=== PATIENT | female | born 1950 | race Caucasian/White ===

== ENCOUNTER 2021-09-30 13:45 | Inpatient (IN) | payer MEDICARE ==
[~2021-09-30] VITALS: Ht 165.1 cm; Wt 84.8 kg
--- NOTE | 2021-09-30 13:58 | NUR ---
Pt placed on monitor, started IV 20g left AC, Blood drawn and given to laboratory scientist.
[2021-09-30] MEDS ORDERED: PROMETHAZINE HCL INJ 12.5 MG in IV DEXTROSE 5% 50 ML IM ONE (14:00)
[2021-09-30] MEDS ORDERED: NORTRIPTYLINE (14:02)
[2021-09-30] MEDS ORDERED: VENLAFAXINE (14:02)
[2021-09-30] MEDS ORDERED: FURO20TA90 (14:02)
[2021-09-30] MEDS ORDERED: XARELTO (14:02)
--- NOTE | 2021-09-30 14:02 | NUR ---
PT IS IN ROOM #3. DR GRAVES EVALUATED THE PT. PT DOES NOT REMEMBER ALL NAMES AND DOSAGES OF HER HOME MEDICATION.
[2021-09-30 14:09] LABS: HEMATOCRIT 40.6 % (31.2-41.9); MEAN CORPUSCULAR HEMOGLOBIN 31.2 uug (24.7-32.8); MEAN CORPUSCULAR VOLUME 93.8 fL (75.5-95.3); PLATELET COUNT (AUTO) 261 K/uL (179-408)
[2021-09-30] MEDS ORDERED: MECLIZINE HCL 25 MG TABLET ONE ×2 (14:13→14:17)
[2021-09-30] MEDS ORDERED: MECLIZINE HCL 25 MG TABLET PO ONE ×2 (14:15→15:00)
[2021-09-30 14:19] LABS: BILIRUBIN,DIRECT 0.1 mg/dL (0.0-0.2); BILIRUBIN,TOTAL 0.4 mg/dL (0.2-1.0); CREATININE 0.9 mg/dL (0.6-1.3); POTASSIUM 4.6 mmol/L (3.5-5.1); TOTAL PROTEIN, SERUM 6.7 g/dL (6.4-8.2)
--- NOTE | 2021-09-30 14:30 | NUR ---
Per MD verbal order, meclizine 12.5mg PO given.
[2021-09-30] MEDS ORDERED: PROCHLORPERAZINE EDISYLATE 10 MG/2 ML VIAL ONE (15:21)
[2021-09-30] MEDS ORDERED: PROCHLORPERAZINE EDISYLATE 10 MG/2 ML VIAL IV ONE (15:30)
--- NOTE | 2021-09-30 18:01 | NUR ---
called for bed, medsurg room 302
--- NOTE | 2021-09-30 18:15 | NUR ---
Spoke with kelly, said she will have the nurse call me back to take the report.
--- NOTE | 2021-09-30 20:15 | NUR ---
Report given to Anel CALVIN
--- NOTE | 2021-09-30 20:50 | NUR ---
Admitted a 71 years old female with Diagnosis of Vertigo. Patient AAOx4. 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 In no acute distress. Denies any pain or SOB. Denies any dizziness at this time. NSR on tele with BBB and PVC, HR at 70/min. Left AC IV site intact and patent. Routine admission care done. Plan of care initiated. Safety measure initiated and call light within reached.
[2021-09-30] MEDS ORDERED: AMLODIPINE 5 MG TABLET PO ONE (21:00)
--- NOTE | 2021-09-30 21:00 | NUR ---
pt taken to room 302 via [facility] [facility] with all belongings.
[2021-09-30] MEDS: RIVAROXABAN 10 MG TABLET PO SCH (21:15)
[2021-09-30] MEDS: ACETAMINOPHEN 325 MG TABLET PO PRN (21:31)
[2021-09-30 22:03] VITALS: BP 119/65
[2021-10-01 00:39] VITALS: BP 117/50
[2021-10-01] MEDS: ACETAMINOPHEN 325 MG TABLET PO PRN ×3 (04:26→21:56)
[2021-10-01 04:45] VITALS: BP 118/68
[2021-10-01] MEDS: PANTOPRAZOLE SODIUM 40 MG TABLET.DR PO SCH (06:09)
--- NOTE | 2021-10-01 06:13 | NUR ---
Patient remains AAOx4. In no acute distress. Stated still having mild Vertigo, but tolerable. Complain of headache and given Tylenol 650mg PO and effective. NSR with BBB and rare PVC's on tele with HR of 68/min. IV site on left AC remains intact and patent. Needs attended to and met. Safety measure maintained and call light within reached.
[2021-10-01 06:39] LABS: HEMATOCRIT 37.5 % (31.2-41.9); MEAN CORPUSCULAR HEMOGLOBIN 32.2 uug (24.7-32.8); MEAN CORPUSCULAR VOLUME 93.9 fL (75.5-95.3); PLATELET COUNT (AUTO) 237 K/uL (179-408)
[2021-10-01 06:51] LABS: POTASSIUM 4.7 mmol/L (3.5-5.1)
[2021-10-01 07:03] LABS: THYROID STIMULATING HORMONE 2.211 mIU/mL (0.358-3.740)
[2021-10-01 07:21] LABS: BILIRUBIN,TOTAL 0.4 mg/dL (0.2-1.0); MAGNESIUM 2.1 mg/dL (1.8-2.4); PHOSPHOROUS 4.3 mg/dL (2.5-4.9); TOTAL PROTEIN, SERUM 6.3 g/dL (6.4-8.2)
[2021-10-01] MEDS: MECLIZINE HCL 25 MG TABLET PO PRN (10:21)
--- NOTE | 2021-10-01 10:21 | NUR ---
Pt alert and oriented x 4. Pt c/o Martinez gave tylenol. Pt c/o dizziness Meclizine given.
--- NOTE | 2021-10-01 11:00 | NUR ---
Attempted to reconcile med list. Called her [facility] was closed. Will attempt again tomorrow.
--- NOTE | 2021-10-01 11:30 | NUR ---
Pt states that Tylenol was not effective notified dr damon. Awaiting new orders.
[2021-10-01 11:49] VITALS: BP 137/55
[2021-10-01] MEDS ORDERED: SUMATRIPTAN SUCCINATE 50 MG TABLET PO ONE (12:00)
--- NOTE | 2021-10-01 16:19 | NUR ---
Pt denies any c/o pain. Pt relieved of migraine KAUFFMAN with the imitrex effective.
[2021-10-01 16:34] VITALS: BP 134/60
[2021-10-01] MEDS: RIVAROXABAN 10 MG TABLET PO SCH (17:30)
[2021-10-01] MEDS: SUMATRIPTAN SUCCINATE 50 MG TABLET PO PRN (20:03)
[2021-10-01 20:18] VITALS: BP 139/68
[2021-10-01] MEDS: LIDOCAINE 5% PATCH TD SCH (21:52)
[2021-10-02] MEDS: SUMATRIPTAN SUCCINATE 50 MG TABLET PO PRN ×3 (03:40→20:34)
[2021-10-02 04:25] VITALS: BP 121/67
[2021-10-02 06:05] LABS: HEMATOCRIT 40.3 % (31.2-41.9); MEAN CORPUSCULAR HEMOGLOBIN 31.9 uug (24.7-32.8); PLATELET COUNT (AUTO) 238 K/uL (179-408)
[2021-10-02 06:22] LABS: CREATININE 1.1 mg/dL (0.6-1.3); PHOSPHOROUS 4.6 mg/dL (2.5-4.9); POTASSIUM 4.7 mmol/L (3.5-5.1)
[2021-10-02] MEDS: PANTOPRAZOLE SODIUM 40 MG TABLET.DR PO SCH (06:24)
--- NOTE | 2021-10-02 08:00 | NUR ---
patient in bed, still complaining of headache and dizziness upon moving and looking around room. Patient denies any nausea at this time. Seen by Dr. Landry, with request for PT to try Susana maneuver to relieve vertigo. PT department made aware.
[2021-10-02] MEDS: MECLIZINE HCL 25 MG TABLET PO PRN ×2 (08:30→23:59)
[2021-10-02] MEDS: ACETAMINOPHEN 325 MG TABLET PO PRN ×2 (08:30→17:16)
--- NOTE | 2021-10-02 10:50 | NUR ---
MRI APPROVED BY DR. GAMEZ, PATIENT IS SCHEDULED FOR MRI TOMORROW @8.30,MUST BE NPO AFTER MIDNITE FOR MRCP.
--- NOTE | 2021-10-02 11:00 | NUR ---
Per PT, patient is not able to tolerated sitting up at bedside. She is severely dizzy. Dr. Vasquez with orders for MRI of spine and brain, and MRCP. Made Dr. Landry of new orders and PT report, Susana maneuver to be attempted tomorrow. made aware of new orders.
[2021-10-02 11:40] VITALS: BP 151/74
[2021-10-02] MEDS ORDERED: RIVA20TA PO (12:18)
[2021-10-02] MEDS ORDERED: FURO20TA4 PO (12:18)
[2021-10-02] MEDS ORDERED: VENL37.510 PO (12:18)
[2021-10-02] MEDS ORDERED: ATOR20TA PO (12:18)
[2021-10-02] MEDS ORDERED: POTA10CA43 PO (12:18)
[2021-10-02] MEDS ORDERED: NORT25CA PO (12:18)
[2021-10-02] MEDS ORDERED: FAMO40TA7 PO (12:18)
[2021-10-02] MEDS ORDERED: PROP20TA7 PO (12:18)
[2021-10-02] MEDS ORDERED: PANT40TA49 PO (12:18)
[2021-10-02] MEDS ORDERED: ONDA-104 PO (12:18)
[2021-10-02] MEDS: ONDANSETRON 4 MG/2 ML VIAL IV PRN ×2 (14:28→20:34)
[2021-10-02 16:24] VITALS: BP 154/60
--- NOTE | 2021-10-02 16:25 | NUR ---
Medication list received from [facility] directly to [facility], Dr. Vasquez requested to reconcile medications.
[2021-10-02] MEDS: RIVAROXABAN 10 MG TABLET PO SCH (17:20)
[2021-10-02] MEDS: PROCHLORPERAZINE EDISYLATE 10 MG/2 ML VIAL IV PRN (18:38)
--- NOTE | 2021-10-02 18:45 | NUR ---
Patient had one episode of dry heaving, severe nausea, no emesis. Patient diaphoretic. Compazine IV provided as ordered with some help. No change in LOC, pupils, equal and reactive. Will endorse to night shift supervisor.
[2021-10-02 20:00] VITALS: BP 142/67
[2021-10-02] MEDS: NORTRIPTYLINE HCL 25 MG CAPSULE PO SCH (20:34)
[2021-10-02] MEDS: ATORVASTATIN 20 MG TABLET PO SCH (20:35)
[2021-10-02] MEDS: PROPRANOLOL HCL 10 MG TABLET PO SCH (20:35)
[2021-10-02] MEDS: LIDOCAINE 5% PATCH TD SCH (20:45)
[2021-10-02] MEDS ORDERED: ATORVASTATIN 10 MG TABLET PO SCH (21:00)
[2021-10-03 04:21] VITALS: BP 110/68
[2021-10-03] MEDS: PANTOPRAZOLE SODIUM 40 MG TABLET.DR PO SCH (06:09)
[2021-10-03] MEDS: SUMATRIPTAN SUCCINATE 50 MG TABLET PO PRN ×2 (06:09→12:14)
[2021-10-03] MEDS: ONDANSETRON 4 MG/2 ML VIAL IV PRN ×2 (06:09→12:14)
[2021-10-03] MEDS: PROCHLORPERAZINE EDISYLATE 10 MG/2 ML VIAL IV PRN ×2 (07:45→17:19)
[2021-10-03] MEDS: ACETAMINOPHEN 325 MG TABLET PO PRN (07:45)
--- NOTE | 2021-10-03 07:45 | NUR ---
Patient is AAOx4. Still c/o nausea and moderate headache. Tylenol and Compazine provided. [facility] in unit to transport patient to [facility] for MRI of spine and brain as well as MRCP.
[2021-10-03] MEDS ORDERED: FUROSEMIDE 20 MG TABLET PO SCH (09:00)
--- NOTE | 2021-10-03 09:33 | NUR ---
ONLY MRI L SPINE WAS DONE, PATIENT UNABLE TO TOLERATE PAIN, REFUSE MRCP/MRI BRAIN EXAM, FLOOR NURSE WAS NOTIFIED BY CHIEF STEWARD/STEWARDESSSANDRA DON.
[2021-10-03] MEDS ORDERED: HYDROMORPHONE 2 MG/1 ML DISP.SYRIN IV PRN (09:45)
--- NOTE | 2021-10-03 09:45 | NUR ---
Patient return from MRI/ MRCP, per report patient is in severe back pain and headache as well as nauseous therefore only MRI of spine is able to be done. Patient on unit and still c/o same symptoms but slightly better then when she is in procedure. Jolene Ontiveros NP made aware with new orders for Dilaudid IV PRN. Patient HOB up, aspiration precautions continued.
[2021-10-03] MEDS: PROPRANOLOL HCL 10 MG TABLET PO SCH ×2 (09:51→22:08)
[2021-10-03 11:53] VITALS: BP 139/74
--- NOTE | 2021-10-03 13:00 | NUR ---
Patient with some relief of back pain, still c/o headache 11/03. Imitrex and zofran provided, with some help. Patient refusing lunch d/t nausea, lemon soda provided with help.
--- NOTE | 2021-10-03 14:30 | NUR ---
PT in unit to work with patient and attempt Susana maneuver. Patient unable to tolerate sitting up, began to throw up. Jolene Lemus NP made aware of episode and inability to tolerate activity, No new orders.
[2021-10-03 16:23] VITALS: BP 118/55
[2021-10-03] MEDS: RIVAROXABAN 10 MG TABLET PO SCH (18:00)
--- NOTE | 2021-10-03 18:10 | NUR ---
Jolene Lemus np made aware of patient continued nausea, dizziness and headache. patient has 2 episodes of emesis, water, no solids, unable to tolerate PO food or fluids at this time. Jolene Lemus NP with orders for IV fluids and Reglan IV.
--- NOTE | 2021-10-03 18:17 | NUR ---
Jolene Lemus NP with orders to DC zofran and compazine and start on routine Reglan. Also, CT of abd/ pelvis without contrast.
--- NOTE | 2021-10-03 18:30 | NUR ---
Patient picked up for CT of abd and pelvis without contrast.
[2021-10-03] MEDS: IV NS 1000 ML 1,000 ML IV PRN (19:02)
[2021-10-03 20:43] VITALS: BP 154/70
[2021-10-03] MEDS: METOCLOPRAMIDE HCL 10 MG/2 ML VIAL IV SCH (21:11)
[2021-10-03] MEDS: LIDOCAINE 5% PATCH TD SCH (22:03)
[2021-10-03] MEDS: ATORVASTATIN 20 MG TABLET PO SCH (22:08)
[2021-10-03] MEDS: NORTRIPTYLINE HCL 25 MG CAPSULE PO SCH (22:09)
[2021-10-04] MEDS: METOCLOPRAMIDE HCL 10 MG/2 ML VIAL IV SCH ×4 (00:57→18:07)
[2021-10-04] MEDS: SUMATRIPTAN SUCCINATE 50 MG TABLET PO PRN ×2 (01:51→21:36)
[2021-10-04 04:00] VITALS: BP 146/77
[2021-10-04] MEDS: PANTOPRAZOLE SODIUM 40 MG TABLET.DR PO SCH (06:38)
[2021-10-04 06:50] LABS: HEMATOCRIT 40.6 % (31.2-41.9); MEAN CORPUSCULAR VOLUME 93.2 fL (75.5-95.3); PLATELET COUNT (AUTO) 228 K/uL (179-408)
--- NOTE | 2021-10-04 06:55 | NUR ---
PATIENT ALERT ORIENTED, NO SOB NO CHEST PAIN, STILL COMPLAIN OF LIGHT DIZZINESS, AND HEADACHES, NO VOMITING NOTED, CONT ON REGLAN. CONT TO MONITOR.
[2021-10-04 07:28] LABS: BILIRUBIN,TOTAL 0.6 mg/dL (0.2-1.0); CREATININE 0.9 mg/dL (0.6-1.3); POTASSIUM 4.3 mmol/L (3.5-5.1); TOTAL PROTEIN, SERUM 6.7 g/dL (6.4-8.2)
[2021-10-04] MEDS: PROPRANOLOL HCL 10 MG TABLET PO SCH ×2 (08:42→20:38)
[2021-10-04] MEDS: IV NS 1000 ML 1,000 ML IV PRN (10:01)
[2021-10-04 11:30] VITALS: BP 122/53
--- NOTE | 2021-10-04 14:33 | NUR ---
Patient had hot flashes after stood up with PT. Pt is in bed now with a moist towel on her forhead (she requested) and I will keep monitoring her.
--- NOTE | 2021-10-04 14:44 | NUR ---
Patient is feeling better, her BP currently is 152/72 pulse 79. Says has a little bit of headache and asked for Tylenol
[2021-10-04] MEDS: ACETAMINOPHEN 325 MG TABLET PO PRN (15:29)
[2021-10-04 16:00] VITALS: BP 129/58
[2021-10-04] MEDS ORDERED: IOHEXOL 350 100 ML INFUS..BTL ONE (16:35)
[2021-10-04] MEDS ORDERED: SWABABLE VALVE TRANSFER SET EA MC ONE (16:35)
[2021-10-04] MEDS ORDERED: IV NORMAL SALINE 250 ML IV ONE (16:36)
[2021-10-04] MEDS: MECLIZINE HCL 25 MG TABLET PO PRN (16:39)
[2021-10-04] MEDS ORDERED: METOCLOPRAMIDE HCL 10 MG/2 ML VIAL IV SCH (18:00)
[2021-10-04] MEDS: RIVAROXABAN 10 MG TABLET PO SCH (18:06)
[2021-10-04] MEDS: ATORVASTATIN 20 MG TABLET PO SCH (20:38)
[2021-10-04] MEDS: NORTRIPTYLINE HCL 25 MG CAPSULE PO SCH (20:38)
[2021-10-04 20:39] VITALS: BP 135/75
[2021-10-04] MEDS: LIDOCAINE 5% PATCH TD SCH (20:39)
--- NOTE | 2021-10-04 22:00 | NUR ---
PATIENT ALERT ORIENTED, NO SOB NO CHEST PAIN, COMPLAIN OF HEADACHES, REQUESTED MIGRAINE PAIN MEDS, NO DIZZINESS, NO VOMITING NOTED, USES BEDPAN FOR BLADDER ELIMINATIONS, CONT TO MONITOR.
[2021-10-05] MEDS: IV NS 1000 ML 1,000 ML IV PRN
[2021-10-05] MEDS: METOCLOPRAMIDE HCL 10 MG/2 ML VIAL IV SCH ×3 (01:22→12:00)
[2021-10-05 04:00] VITALS: BP 147/69
[2021-10-05] MEDS: PANTOPRAZOLE SODIUM 40 MG TABLET.DR PO SCH (05:47)
[2021-10-05] MEDS: PROPRANOLOL HCL 10 MG TABLET PO SCH (08:00)
[2021-10-05 11:22] VITALS: BP 142/58
[2021-10-05] MEDS ORDERED: MECL-159 PO (12:33)
[2021-10-05] MEDS ORDERED: PROP10TA68 PO (12:33)
[2021-10-05] MEDS ORDERED: SUMA50TA PO (12:33)
[2021-10-05] MEDS ORDERED: METO-295 PO (12:33)
[2021-10-05] MEDS: MECLIZINE HCL 25 MG TABLET PO PRN (13:33)
[2021-10-05] MEDS ORDERED: ENSURE ENLIVE (VAN) 240 ML LIQUID PO SCH (17:00)
--- NOTE | 2021-10-05 17:34 | NUR ---
dc orders received noted and carried out.dc heplock per md orders.dc instruction and education given to the pt.pt said she will follow up with her pcp.pt left the facility via private car in stable condition
== END 2021-10-05 17:39 | disposition home or self-care (01) | DRG 149 ==
LOC: ER 13:46 → MEDSURG3 20:22 → TELE3 20:52 → MEDSURG3 10-01 13:30
PROVIDERS: ADMIT Internal Medicine; ATTEND Nurse Practitioner Acute Care
DX: H81.10 Benign paroxysmal vertigo, unspecified ear (principal); D68.59 Other primary thrombophilia; M48.56XA Collapsed vertebra, not elsewhere classified, lumbar region, initial encounter for fracture; G43.909 Migraine, unspecified, not intractable, without status migrainosus; Z74.09 Other reduced mobility; E66.9 Obesity, unspecified; E78.5 Hyperlipidemia, unspecified; Z20.822 Contact with and (suspected) exposure to COVID-19; Z86.711 Personal history of pulmonary embolism; Z86.73 Personal history of transient ischemic attack (TIA), and cerebral infarction without residual deficits; Z86.718 Personal history of other venous thrombosis and embolism; Z79.01 Long term (current) use of anticoagulants; Z87.442 Personal history of urinary calculi; Z87.891 Personal history of nicotine dependence; Z88.0 Allergy status to penicillin; Z88.2 Allergy status to sulfonamides; H54.61 Unqualified visual loss, right eye, normal vision left eye; K76.9 Liver disease, unspecified; I44.7 Left bundle-branch block, unspecified; R73.9 Hyperglycemia, unspecified; I10 Essential (primary) hypertension; Z68.31 Body mass index [BMI] 31.0-31.9, adult; Z90.710 Acquired absence of both cervix and uterus; Z98.890 Other specified postprocedural states; M51.16 Intervertebral disc disorders with radiculopathy, lumbar region
CPT/HCPCS: 36415; 70450; 70496; 71045; 72148; 83735; 84100; 84443; 84484; 85025; 93005; 93307; 93880; 97161; A4663; G0378; J0780; J1170; J2405; J2550; J2765; J7040; J8597; Q9967